=== PATIENT | female | born 1980 | race Caucasian/White ===

== ENCOUNTER 2018-07-20 14:00 | Day surgery (SDC) | payer OTHER ==
[2018-07-19 10:21] VITALS: BMI 40.4
--- NOTE | 2018-07-20 15:27 | HP ---
Admitting History and Physical - Admission Chief Complaint: Abnormal vaginal bleeding History of Present Illness: 38 yo Para 0, with h/o irregular menses, is pre op for D&C hysteroscopy. History Source: Patient Limitations to Obtaining History: No Limitations - Past Medical History ...LMP Comment: ON AND OFF FOR 2 MONTHS ...: No ...Para: 0 - Past Surgical History Past Surgical History: Yes: None - Smoking History Smoking history: Former smoker Have you smoked in the past 12 months: No If you are a former smoker, when did you quit?: 2013 - Alcohol/Substance Use Hx Alcohol Use: No Home Medications - Allergies Allergies/Adverse Reactions: Allergies Allergy/AdvReac Type Severity Reaction Status Date / Time ACRYLLIC Allergy Severe Rash Uncoded 07/20/18 14:37 - Home Medications Home Medications: Ambulatory Orders Aspirin [Ecotrin] 81 mg PO DAILY 07/19/18 Atorvastatin Ca [Lipitor] 80 mg PO DAILY 07/19/18 Carvedilol [Coreg] 6.25 mg PO DAILY 07/19/18 Lisinopril/Hydrochlorothiazide [Lisinopril-Hctz 20-25 mg Tab] 1 each PO DAILY Metformin HCl [Metformin HCl ER] 1,000 mg PO DAILY 07/19/18 Paroxetine HCl 20 mg PO DAILY 07/19/18 Family Disease History - Family Disease History Family History: Unremarkable Review of Systems - Review of Systems Constitutional: reports: No Symptoms Eyes: reports: No Symptoms HENT: reports: No Symptoms Neck: reports: No Symptoms Cardiovascular: reports: No Symptoms Respiratory: reports: No Symptoms Gastrointestinal: reports: No Symptoms Genitourinary: reports: Vaginal Bleeding Breasts: reports: No Symptoms Reported Neurological: reports: No Symptoms Psychiatric: reports: No Symptoms Pain Intensity: 0 Physical Examination Vital Signs: Vital Signs Temperature 98.8 F 07/20/18 14:40 Pulse Rate 90 07/20/18 14:40 Respiratory Rate 18 07/20/18 14:40 Blood Pressure 104/63 07/20/18 14:40 O2 Sat by Pulse Oximetry (%) 90 L 07/20/18 14:42 Constitutional: Yes: Well Nourished Eyes: Yes: Conjunctiva Clear HENT: Yes: Atraumatic Neck: Yes: Supple Cardiovascular: Yes: Regular Rate and Rhythm Respiratory: Yes: Regular Gastrointestinal: Yes: Normal Bowel Sounds Musculoskeletal: Yes: WNL Extremities: Yes: WNL Neurological: Yes: Alert, Oriented ...Motor Strength: WNL Psychiatric: Yes: Alert, Oriented Problem List - Problems (1) Irregular menstrual bleeding Code(s): N92.6 - IRREGULAR MENSTRUATION, UNSPECIFIED (2) H/O metrorrhagia Code(s): Z87.42 - PERSONAL HISTORY OF OTH DISEASES OF THE FEMALE GENITAL TRACT (3) Metrorrhagia Code(s): N92.1 - EXCESSIVE AND FREQUENT MENSTRUATION WITH IRREGULAR CYCLE Assessment/Plan Irregular menses Pre op for D&C hysteroscopy Consent signed Anesthesia to see patient
[2018-07-20] MEDS ORDERED: MIDAZOLAM HCL 2 MG/2 ML SINGLE DOSE VIAL ONE (15:47)
[2018-07-20] MEDS ORDERED: fentaNYL CITRATE 250 MCG/5 ML VIAL ONE (15:48)
[2018-07-20] MEDS ORDERED: SUCCINYLCHOLINE CHLORIDE 200 MG/10 ML VIAL ONE (15:52)
[2018-07-20] MEDS ORDERED: PROPOFOL 20 ML ONE (15:54)
--- NOTE | 2018-07-20 16:13 | OP ---
Operative Note - Note: Operative Date: 07/20/18 Pre-Operative Diagnosis: Menometrorrhagia Operation: D&C Hysteroscopy Findings: Endometrial polyp Post-Operative Diagnosis: Same as Pre-op Surgeon: Renee De La Cruz Anesthesia: General Specimens Removed: Polyp Estimated Blood Loss (mls): 1 Operative Report Dictated: Yes
[2018-07-20] MEDS ORDERED: KETOROLAC TROMETHAMINE 30 MG/1 ML VIAL ONE (16:18)
[2018-07-20] MEDS ORDERED: LIDOCAINE HCL/PF 2% SDV 5ML VIAL ONE (16:18)
[2018-07-20] MEDS ORDERED: ONDANSETRON 4 MG/2 ML VIAL ONE (16:18)
[2018-07-20] MEDS ORDERED: oxyCODONE HCL 5 MG TABLET PO PRN ×2 (17:05)
[2018-07-20] MEDS ORDERED: ONDANSETRON 4 MG/2 ML VIAL IVPUSH PRN (17:05)
[2018-07-20] MEDS ORDERED: LACTATED RINGERS SOLUTION 1,000 ML IV SCH (17:15)
--- NOTE | 2018-07-20 17:22 | OP ---
DATE OF OPERATION: 07/20/2018 PREOPERATIVE DIAGNOSIS: Metrorrhagia, menorrhagia. POSTOPERATIVE DIAGNOSIS: Endometrial polyp. SURGEON: Renee De La Cruz M.D. ANESTHESIA: General. COMPLICATIONS: None. ESTIMATED BLOOD LOSS: 1 mL. PROCEDURE: Patient was taken to the operating room where general anesthesia was administered. Patient was then placed in lithotomy position. She was then prepped and draped in proper sterile fashion. A weighted speculum was placed in the vagina. The anterior lip of the cervix was grasped with a single-toothed tenaculum. Then 5 mm hysteroscope was gently introduced into the uterine cavity. The endometrial cavity was then visualized. Both ostia were visualized; there was a polyp noted in the cavity. Then the polyp forceps was used to remove the polyp and a sharp curettage was then performed. When finished the instruments were removed. The patient was taken out of lithotomy position. She was taken to PACU in stable condition. Pathology, endometrial curettings and endometrial polyp. RENEE DE LA CRUZ M.D. [id number] MTDD
[2018-07-20 18:18] VITALS: TEMP 97.4
[2018-07-20 18:40] VITALS: BP 98/49; PULSE 72
--- NOTE | 2018-07-24 14:28 | PATH ---
Surgical Pathology Report Patient Name: JAVIER AMARAL [facility]. Rec. #: [id number] /Age/Gender: 1980 (Age: 38) / F Account: [id number] Location: [facility] SURGICAL Taken: 07/20/2018 Received: 07/21/2018 Reported: 07/24/2018 Physicians: Renee De La Cruz M.D. Specimen(s) Received ENDOMETRIAL CURETTINGS AND POLYPS Clinical History Menorrhagia Final Diagnosis ENDOMETRIAL CURETTINGS AND POLYPS, DILATION AND CURETTAGE: FRAGMENT OF ENDOMETRIAL POLYP(S) AND SCANTY BENIGN CERVICAL TISSUE. Electronically Signed Lissett Gonzalez M.D. Gross Description Received in formalin labeled "endometrial curettings and polyps," is a 2.1 x 1.6 x 0.2 cm aggregate of napoles, irregular to polypoid soft tissue fragments. The formalin is filtered and the specimen is entirely submitted in one cassette. /07/21/201807/21/2018
== END 2018-07-20 18:37 | disposition home or self-care (01) ==
LOC: JASU-SURG 14:00
PROVIDERS: ATTEND Obstetrics & Gynecology
PROC: 0UB97ZX Excision of Uterus, Via Natural or Artificial Opening, Diagnostic (ICD-10-PCS; principal; 2018-07-20 15:30)
PROC: 0UJD8ZZ Inspection of Uterus and Cervix, Via Natural or Artificial Opening Endoscopic (ICD-10-PCS; 2018-07-20 15:30)
DX: N92.1 Excessive and frequent menstruation with irregular cycle (principal); N84.0 Polyp of corpus uteri; I10 Essential (primary) hypertension; E11.9 Type 2 diabetes mellitus without complications; Z76.89 Persons encountering health services in other specified circumstances
CPT/HCPCS: 82962; 84703; 88305-TC; 94760

== ENCOUNTER 2020-01-20 22:47 | Emergency (ER) | payer OTHER ==
[2020-01-20 23:09] VITALS: BP 112/69; PULSE 97; BMI 37.0
--- NOTE | 2020-01-20 23:09 | PDOC ---
History of Present Illness - General Chief Complaint: Chest Pain Stated Complaint: CHEST PAIN Time Seen by Provider: 01/20/20 23:09 History Source: Patient Exam Limitations: No Limitations - History of Present Illness Initial Comments: 01/20/20 23:09 Kirstin Rodriguez is a 40F anxiety, NIDDM, HTN, HLD, NM (s/p stent 2013) presenting with chest pain. 6 years ago patient had vomiting and diarrhea with palpitations intermittently throughout the day went to ED and had 95% LAD stent stopped smoking today is patient's birthday, ate cake and democrat food after had one episode vomiting and diarrhea with palpitations no chest pain, no SOB, no DEWITT, no vision changes, no abd pain, no urinary sx came to ED for eval given prior NM symptoms history patient believes it is just anxiety LMP a few months ago, highly irregular menses asymptomatic at this time denies alcohol/drug/tobacco use allergy to acrylic fingernail extensions sees Raquel for cards and has 6 month visits, last normal Cards: Raquel Meds: metformin, Paxil Past History - Medical History Allergies/Adverse Reactions: Allergies Allergy/AdvReac Type Severity Reaction Status Date / Time No Known Drug Allergies Allergy Unknown Verified 08/11/19 16:03 ACRYLLIC Allergy Severe Rash Uncoded 08/11/19 16:03 Home Medications: Ambulatory Orders Aspirin [Ecotrin] 81 mg PO DAILY 07/19/18 Atorvastatin Ca [Lipitor] 80 mg PO DAILY 07/19/18 Carvedilol [Coreg] 6.25 mg PO DAILY 07/19/18 Lisinopril/Hydrochlorothiazide [Lisinopril-Hctz 20-25 mg Tab] 1 each PO DAILY 07/19/18 Paroxetine HCl 20 mg PO DAILY 07/19/18 metFORMIN HCL [Metformin HCl ER] 1,000 mg PO DAILY 07/19/18 Anemia: No Asthma: No Cancer: No Cardiac Disorders: Yes (HEART ATTACK; STENT 2013) CVA: No COPD: No CHF: No Dementia: No Diabetes: Yes GI Disorders: No Disorders: No HTN: Yes Hypercholesterolemia: Yes Liver Disease: No Seizures: No Thyroid Disease: No - Surgical History Abdominal Surgery: No Appendectomy: No Cardiac Surgery: Yes (STENT) Cholecystectomy: No Lung Surgery: No Neurologic Surgery: No Orthopedic Surgery: No - Reproductive History Is Patient Now?: No - Psycho-Social/Smoking History Smoking History: Unknown if ever smoked Have you smoked in the past 12 months: No If you are a former smoker, when did you quit?: 2014 - Substance Abuse Hx (Audit-C & DAST Scrn) How often the patient has a drink containing alcohol: Never Score: In Men: 4 or > Positive; In Women: 3 or > Positive: 0 Screen Result (Pos requires Nsg. Audit-10AR): Negative In the last yr the pt used illegal drug/Rx for NonMed reason: No Score: Yes response is considered Positive: 0 Screen Result (Positive result requires Nsg. DAST-10): Negative Review of Systems - Review of Systems Able to Perform ROS?: Yes Constitutional: No: Symptoms Reported HEENTM: No: Symptoms Reported Respiratory: No: Symptoms reported Cardiac (ROS): Yes: Palpitations. No: Chest Pain ABD/GI: Yes: Constipated, Diarrhea, Nausea, Vomiting. No: Poor Appetite, Poor Fluid Intake : No: Symptoms Reported Musculoskeletal: No: Symptoms Reported Integumentary: No: Symptoms Reported Neurological: No: Symptoms reported Endocrine: No: Symptoms Reported Hematologic/Lymphatic: No: Symptoms Reported All Other Systems: Reviewed and Negative *Physical Exam - Vital Signs Last Vital Signs Temp Pulse Resp BP Pulse Ox 97 H 12 112/69 99 01/20/20 23:00 01/20/20 23:00 01/20/20 23:00 01/20/20 23:00 - Physical Exam General Appearance: Yes: Nourished, Appropriately Dressed, Obese. No: Apparent Distress HEENT: positive: EOMI, MARIBELL, Normal Voice, Symmetrical, Pharynx Normal. negati ve: Scleral Icterus (R), Scleral Icterus (L), Pharyngeal Erythema, Tonsillar Exudate, Tonsillar Erythema Neck: positive: Trachea midline, Supple. negative: Tender, Rigid, Decreased range of motion, Stridor, Lymphadenopathy (R), Lymphadenopathy (L) Respiratory/Chest: positive: Lungs Clear, Normal Breath Sounds. negative: Chest Tender, Respiratory Distress, Accessory Muscle Use, Crackles, Rales, Rhonchi, Stridor, Wheezing Cardiovascular: positive: Regular Rhythm, Regular Rate. negative: Murmur Gastrointestinal/Abdominal: positive: Normal Bowel Sounds, Flat, Soft. negative: Tender, Organomegaly, Pulsatile Mass, Guarding, Rebound Musculoskeletal: positive: Normal Inspection. negative: CVA Tenderness, CVA Tenderness (R), CVA Tenderness (L), Decreased Range of Motion, Vertebral Tenderness Extremity: positive: Normal Capillary Refill, Normal Inspection, Normal Range of Motion, Pelvis Stable. negative: Tender, Coldness, Cyanosis, Pedal Edema, Swelling, Calf Tenderness Integumentary: positive: Normal Color, Dry, Warm. negative: Diaphoresis Neurologic: positive: Fully Oriented, Alert, Normal Mood/Affect, Normal Response ED Treatment Course - LABORATORY CBC & Chemistry Diagram: 01/20/20 23:40 01/20/20 23:40 Medical Decision Making - Medical Decision Making 01/20/20 23:09 Patient has history of LAD occlusion and NM, HTN, HLD, NIDDM, here with palpitations and symptoms consistent with prior including N/V. Asymptomatic at this time, VSS, exam unremarkable. ECG SR with sinus arrthythmia HR 88 QTc 450 no CHELO/D or TWI. Eval with CMP/CBC/CP/ECG/CXR/TSH. Patient high risk for cardiac disease, merits tele/obs admit for further eval. 01/21/20 03:22 ECG NSR with PVCs HR 88 QTc 450 no CHELO/D or TWI. CXR not taken yet. Labs notable for: - WBC 12.1 - CMP WNL - CP WNL - lipase 512, consistent with acute pancreatitis Discussed results with patient, recommend tele/obs admission. Patient refuses to stay citing she has a tattoo appointment in the morning. Discussed high risk of cardiac pathology including CVA/NM/, as as well as likely pancreatitis meriting further evaluation for causes with GI. Patient still wishes to leave AMA. Has capacity to make this decision. Patient signed AMA paperwork. Discussed importance of MD follow-up and to return if any symptoms manifest, patient understands and has left ED. Discharge - Discharge Information Problems reviewed: Yes Clinical Impression/Diagnosis: Palpitations Pancreatitis Qualifiers: Chronicity: acute Pancreatitis type: unspecified pancreatitis type Acute pancreatitis complication: unspecified Qualified Code(s): K85.90 - Acute pancreatitis without necrosis or infection, unspecified Condition: Stable Disposition: AGAINST MEDICAL ADVICE - Follow up/Referral Referrals: Jason Park MD [Primary Care Provider] - - Patient Discharge Instructions Patient Printed Discharge Instructions: DI for Pancreatitis, DI for Atypical Chest Pain Additional Instructions: Today you were evaluated for nausea and vomiting. Your labs do not show any heart attack now, but we recommend you stay for heart monitoring as you are at high risk for heart attack again. You also have pancreatitis, and we recommend you stay for this as well. You refuse to stay in the hospital and would like to leave despite risk of worsening pancreatitis and heart attack. At home, avoid fatty foods and stay hydrated. Please follow-up with your regular doctor for further care. - Post Discharge Activity Work/Back to School Note: My Personal Safety Plan
[2020-01-21 00:20] LABS: BASO % 0.5 % (0-2.0); EOS % 1.4 % (0-4.5); HEMATOCRIT 28.9 % (32.4-45.2); HEMOGLOBIN 9.2 GM/dL (10.7-15.3); LYMPH % 17.6 % (8-40); MEAN CELL VOLUME 78.1 fl (80-96); MEAN PLT VOLUME 7.6 fl (7.5-11.1); MONO % 4.6 % (3.8-10.2); NEUT % 75.9 % (42.8-82.8); PLATELET COUNT 458 K/MM3 (134-434); RBC 3.69 M/mm3 (3.60-5.2); WHITE BLOOD COUNT 12.1 K/mm3 (4.0-10.0)
[2020-01-21 00:44] LABS: BILIRUBIN,TOTAL 0.1 mg/dL (0.2-1); BLOOD UREA NITROGEN 17.4 mg/dL (7-18); CALCIUM 8.9 mg/dL (8.5-10.1); CO2 27 mmol/L (21-32); CREATININE 1.1 mg/dL (0.55-1.3); GLUCOSE,RANDOM 242 mg/dL (74-106); POTASSIUM 3.9 mmol/L (3.5-5.1); SGPT/ALT 23 U/L (13-61); SODIUM 135 mmol/L (136-145); TOT PROT 7.5 g/dl (6.4-8.2)
[2020-01-21 00:45] LABS: ALBUMIN 3.4 g/dl (3.4-5.0); ALK PHOS 94 U/L (45-117); ANION GAP 7 MMOL/L (8-16); CHLORIDE 101 mmol/L (98-107); LIPASE 512 U/L (73-393)
[2020-01-21 00:50] LABS: SGOT/AST < 3 U/L (15-37)
--- NOTE | 2020-01-21 10:31 | EKG ---
Test Reason : Blood Pressure : / mmHG Vent. Rate : 088 BPM Atrial Rate : 088 BPM P-R Int : 148 ms QRS Dur : 082 ms QT Int : 372 ms P-R-T Axes : 047 011 021 degrees QTc Int : 450 ms SINUS RHYTHM WITH PREMATURE SUPRAVENTRICULAR COMPLEXES OTHERWISE NORMAL ECG WHEN COMPARED WITH ECG OF 11-AUG-2019 22:26, PREMATURE SUPRAVENTRICULAR COMPLEXES ARE NOW PRESENT Confirmed by BABAR MURRAY MD ([id number]) on 01/21/2020 10:31:28 AM Referred By: Confirmed By:BABAR MURRAY MD
--- NOTE | 2020-01-23 09:10 | EKG ---
Test Reason : Blood Pressure : / mmHG Vent. Rate : 088 BPM Atrial Rate : 088 BPM P-R Int : 148 ms QRS Dur : 082 ms QT Int : 372 ms P-R-T Axes : 047 011 021 degrees QTc Int : 450 ms SINUS RHYTHM WITH PREMATURE SUPRAVENTRICULAR COMPLEXES OTHERWISE NORMAL ECG WHEN COMPARED WITH ECG OF 11-AUG-2019 22:26, PREMATURE SUPRAVENTRICULAR COMPLEXES ARE NOW PRESENT Confirmed by MD V[place], DRE ([id number]) on 01/23/2020 9:10:15 AM Referred By: Confirmed By:DRE COLEMAN MD
--- NOTE | 2020-01-29 18:30 | PDOC ---
Documentation entered by Rachel Bhandari SCRIBE, acting as scribe for Ángela Houser MD. Ángela Houser MD: This documentation has been prepared by the Trisha gerber Sydney, SCRIBE, under my direction and personally reviewed by me in its entirety. I confirm that the documentation accurately reflects all work, treatment, procedures, and medical decision making performed by me. Attending Attestation - Resident Resident Name: Rob Larsen - ED Attending Attestation I have performed the following: I have examined & evaluated the patient, The case was reviewed & discussed with the resident, I agree w/resident's findings & plan, Exceptions are as noted - HPI HPI: 01/20/20 23:29 Patient is a 40 year old female with a significant past medical history of anxiety, former smoker (quit 5 years ago), DM, HTN HLD, MA (s/p stent 2013) who presents to the ED with one day of vomiting and diarrhea. As per patient, she was celebrating her birthday this afternoon when she suddenly began vomiting and having diarrhea simultaneously. Patient also endorses associated heart palpitations. She reported to the ED for further evaluation of her symptoms secondary to have a very similar episode when she had a MA in 2013. Denies headache, fever, chills, abdominal pain, or urinary changes. Allergies: NKDA PCP: Dr. Park - Physicial Exam PE: 01/21/20 01:18 wnwd 40 yo female p/w nausea,vomiting ,diarrhea PMH CAD,MA,HTN,NIDDM 01/29/20 18:28 head ncat neck supple lungs cta b/l cvs [id number] abd nontender skin warm and dry extremities nontender neuro axox3 - Medical Decision Making 01/20/20 23:28 ekg nsr @ 88 bpm Discharge - Discharge Information Problems reviewed: Yes Clinical Impression/Diagnosis: Palpitations Pancreatitis Qualifiers: Chronicity: acute Pancreatitis type: unspecified pancreatitis type Acute pancreatitis complication: unspecified Qualified Code(s): K85.90 - Acute pancreatitis without necrosis or infection, unspecified Condition: Stable Disposition: AGAINST MEDICAL ADVICE - Follow up/Referral Referrals: Jason Park MD [Primary Care Provider] - - Patient Discharge Instructions Patient Printed Discharge Instructions: DI for Pancreatitis, DI for Atypical Chest Pain Additional Instructions: Today you were evaluated for nausea and vomiting. Your labs do not show any heart attack now, but we recommend you stay for heart monitoring as you are at high risk for heart attack again. You also have pancreatitis, and we recommend you stay for this as well. You refuse to stay in the hospital and would like to leave despite risk of worsening pancreatitis and heart attack. At home, avoid fatty foods and stay hydrated. Please follow-up with your regular doctor for further care. - Post Discharge Activity Work/Back to School Note: My Personal Safety Plan
== END 2020-01-21 01:35 | disposition left against medical advice (07) ==
LOC: JER 22:47
DX: R00.2 Palpitations (principal); K85.90 Acute pancreatitis without necrosis or infection, unspecified
CPT/HCPCS: 36415; 80053; 82550; 83690; 84443; 84484; 85025; 93005; 93010; 99285-25

== ENCOUNTER 2023-10-03 18:36 | Emergency (ER) | payer OTHER ==
[2023-10-03 18:55] VITALS: BP 110/72; PULSE 92; RESP 18; TEMP 98; BMI 37.0
[2023-10-03 20:21] LABS: EPI CELLS >36 /uL (0-25.1); HYALINE CASTS 1 /uL (0-3.1); PH,URINE 5.5 (5.0-8.0); URINE APPEARANCE TURBID; URINE BACTERIA 318 /uL (0-1359); URINE BILIRUBIN NEGATIVE (NEGATIVE); URINE COLOR ORANGE; URINE GLUCOSE (UA) NEGATIVE (NEGATIVE); URINE KETONE TRACE (NEGATIVE); URINE LEUK ESTERASE 1+ (NEGATIVE); URINE NITRITE NEGATIVE (NEGATIVE); URINE PROTEIN 2+ (NEGATIVE); URINE RBC 4276 /uL (0-23.9); URINE WBC 97 /uL (0-25.8)
[2023-10-03] MEDS: ACETAMINOPHEN 1000 MG/100 ML BAG IVPB ONE (21:10)
[2023-10-03] MEDS: SODIUM CHLORIDE 0.9% 500 ML INFUS.BAG IV ONE (21:10)
[2023-10-03 21:12] LABS: BASO % 0.6 % (0-2.0); EOS % 1.4 % (0-4.5); HEMATOCRIT 38.9 % (32.4-45.2); HEMOGLOBIN 13.3 GM/dL (10.7-15.3); LYMPH % 29.4 % (8-40); MCH 30.8 pg (25.7-33.7); MCHC 34.1 g/dl (32.0-36.0); MEAN CELL VOLUME 90.4 fl (80-96); MEAN PLT VOLUME 7.3 fl (7.5-11.1); MONO % 5.6 % (3.8-10.2); PLATELET COUNT 399 10^3/uL (134-434); RDW 13.7 % (11.6-15.6); WHITE BLOOD COUNT 13.3 K/mm3 (4.0-10.0)
[2023-10-03 21:38] LABS: POTASSIUM 3.9 mmol/L (3.5-5.1)
[2023-10-03 21:41] LABS: CALCIUM 9.8 mg/dL (8.5-10.1)
[2023-10-03 21:42] LABS: ALBUMIN 3.8 g/dl (3.4-5.0); BLOOD UREA NITROGEN 13.5 mg/dL (7-18)
[2023-10-03 21:45] LABS: CREATININE 0.8 mg/dL (0.55-1.3)
[2023-10-03 21:46] LABS: TOT PROT 7.8 g/dl (6.4-8.2)
[2023-10-03 21:47] LABS: BILIRUBIN,TOTAL 0.4 mg/dL (0.2-1)
[2023-10-03] MEDS ORDERED: FLUCONAZOLE 150 MG TABLET PO ONE (22:40)
[2023-10-03] MEDS: FLUCONAZOLE 150 MG TABLET PO ONE (22:43)
[2023-10-03 23:05] LABS: EPI CELLS 15 /uL (0-25.1); HYALINE CASTS 1 /uL (0-3.1); URINE APPEARANCE TURBID; URINE BACTERIA 24 /uL (0-1359); URINE BILIRUBIN NEGATIVE (NEGATIVE); URINE COLOR ORANGE; URINE GLUCOSE (UA) NEGATIVE (NEGATIVE); URINE KETONE NEGATIVE (NEGATIVE); URINE LEUK ESTERASE 1+ (NEGATIVE); URINE NITRITE NEGATIVE (NEGATIVE); URINE PROTEIN 2+ (NEGATIVE); URINE WBC 136 /uL (0-25.8)
[2023-10-03 23:31] LABS: URINE CRYSTALS NONE SEEN /hpf; URINE RBC 11860.4 /uL (0-23.9)
== END 2023-10-03 23:34 | disposition home or self-care (01) ==
LOC: JER 18:36
DX: N39.0 Urinary tract infection, site not specified (principal); R10.30 Lower abdominal pain, unspecified; R31.9 Hematuria, unspecified
CPT/HCPCS: 36415; 74176-TC; 80053; 81003; 82550; 84703; 85025; 87077; 87086; 99284-25

== ENCOUNTER 2024-09-19 05:56 | Inpatient (IN) | payer OTHER ==
[2024-09-19] MEDS ORDERED: KETOROLAC TROMETHAMINE 15 MG/ML VIAL ONE (06:36)
[2024-09-19] MEDS: SODIUM CHLORIDE 0.9% 500 ML INFUS.BAG IV ONE (06:49)
[2024-09-19] MEDS: KETOROLAC TROMETHAMINE 15 MG/ML VIAL IVPUSH ONE (06:49)
[2024-09-19 07:07] LABS: ABSOLUTE IMMATURE GRANULOCYTES 0.03 x10^3/uL (0.0-0.031); BASOPHILS # 0.08 x10^3/uL (0.01-0.08); EOSINOPHIL % 2.3 % (0.7-5.8); EOSINOPHILS # 0.25 x10^3/uL (0.04-0.36); HEMATOCRIT 37.9 % (34.1-44.9); HEMOGLOBIN 12.5 g/dL (11.2-15.7); MEAN CELL VOLUME 92.7 fl (79.4-94.8); MEAN PLT VOLUME 9.6 fl (9.4-12.3); MONOCYTE # 0.74 x10^3/uL (0.24-0.86); MONOCYTE % 6.9 % (4.7-12.5); PLATELET COUNT 320 x10^3/uL (182-369); RDW 12.6 % (12.2-17.1)
[2024-09-19 07:36] LABS: POTASSIUM 4.1 mmol/L (3.5-5.1)
[2024-09-19 07:38] LABS: CALCIUM 9.7 mg/dL (8.5-10.1)
[2024-09-19 07:39] LABS: ALBUMIN 3.4 g/dl (3.4-5.0); BLOOD UREA NITROGEN 16.2 mg/dL (7-18)
[2024-09-19 07:42] LABS: CREATININE 0.7 mg/dL (0.55-1.3)
[2024-09-19 07:43] LABS: BILIRUBIN,TOTAL 0.2 mg/dL (0.2-1)
[2024-09-19 07:44] LABS: TOT PROT 6.8 g/dl (6.4-8.2)
[2024-09-19 08:39] LABS: EPI CELLS 34 /uL (0-25.1); HCG,QUALITATIVE URINE Negative; HYALINE CASTS 2 /uL (0-3.1); PH,URINE 5.5 (5.0-8.0); URINE APPEARANCE TURBID; URINE BACTERIA 857 /uL (0-1359); URINE BILIRUBIN NEGATIVE (NEGATIVE); URINE COLOR ORANGE; URINE GLUCOSE (UA) NEGATIVE (NEGATIVE); URINE KETONE TRACE (NEGATIVE); URINE LEUK ESTERASE 1+ (NEGATIVE); URINE NITRITE NEGATIVE (NEGATIVE); URINE PROTEIN 2+ (NEGATIVE); URINE RBC 12807 /uL (0-23.9); URINE UROBILINOGEN 0.2 mg/dL (0.2-1.0); URINE WBC 67 /uL (0-25.8)
[2024-09-19] MEDS ORDERED: CEFTRIAXONE 1 G/50 ML PREMIX 50 ML IVPB ONE (10:31)
[2024-09-19] MEDS ORDERED: ACETAMINOPHEN 500 MG TABLET (FP) PO PRN (12:01)
[2024-09-19] MEDS ORDERED: KETOROLAC TROMETHAMINE 15 MG/ML VIAL IVPUSH PRN (12:01)
[2024-09-19] MEDS ORDERED: ASPIRIN COATED 81 MG TABLET.EC ONE (14:28)
[2024-09-19] MEDS: ASPIRIN COATED 81 MG TABLET.EC PO SCH (14:36)
[2024-09-19 15:53] VITALS: BMI 36.0
[2024-09-19] MEDS: INSULIN ASPART SLIDING SCALE (NOVOLOG) 1 VIAL SQ SCH (16:15)
[2024-09-19] MEDS: SODIUM CHLORIDE 1,000 ML IV SCH (16:16)
[2024-09-19] MEDS: ATORVASTATIN CA 80 MG TABLET (FP) PO SCH (21:14)
[2024-09-19] MEDS: PARoxetine HCL 20 MG TABLET PO SCH (21:14)
[2024-09-19] MEDS: CARVEDILOL 6.25 MG TABLET (FP) PO SCH (21:14)
[2024-09-20 09:35] LABS: ABSOLUTE IMMATURE GRANULOCYTES 0.03 x10^3/uL (0.0-0.031); BASOPHILS # 0.05 x10^3/uL (0.01-0.08); EOSINOPHILS # 0.17 x10^3/uL (0.04-0.36); HEMATOCRIT 34.5 % (34.1-44.9); HEMOGLOBIN 11.4 g/dL (11.2-15.7); MEAN CELL VOLUME 92.7 fl (79.4-94.8); MEAN PLT VOLUME 9.5 fl (9.4-12.3); MONOCYTE # 0.49 x10^3/uL (0.24-0.86); MONOCYTE % 5.9 % (4.7-12.5); PLATELET COUNT 283 x10^3/uL (182-369); RDW 12.6 % (12.2-17.1)
[2024-09-20] MEDS: CEFTRIAXONE 1 G/50 ML PREMIX 50 ML IVPB SCH (10:25)
[2024-09-20 10:47] LABS: POTASSIUM 4.1 mmol/L (3.5-5.1)
[2024-09-20 11:06] LABS: BLOOD UREA NITROGEN 8.5 mg/dL (7-18)
[2024-09-20 11:07] LABS: CREATININE 0.6 mg/dL (0.55-1.3)
[2024-09-20 11:08] LABS: CALCIUM 8.6 mg/dL (8.5-10.1)
[2024-09-20] MEDS ORDERED: PROPOFOL 20 ML ONE (14:05)
[2024-09-20] MEDS: ceFAZolin SODIUM 1 GM VIAL IVPB ONE (14:10)
[2024-09-20] MEDS: LACTATED RINGERS SOLUTION 1,000 ML IV SCH ×2 (14:36→17:07)
[2024-09-20] MEDS ORDERED: KETOROLAC TROMETHAMINE 15 MG/ML VIAL IVPUSH PRN (15:26)
[2024-09-20] MEDS ORDERED: ACETAMINOPHEN 500 MG TABLET (FP) PO PRN (15:26)
[2024-09-20] MEDS: ACETAMINOPHEN 1000 MG/100 ML BAG IVPB ONE (16:12)
[2024-09-20] MEDS ORDERED: KETOROLAC TROMETHAMINE 30 MG/1 ML VIAL IVPUSH ONE (18:09)
[2024-09-20] MEDS ORDERED: morphine CARPU-JECT 2 MG/1 ML DISP.SYRIN IM PRN ×2 (18:13→21:00)
[2024-09-20] MEDS: INSULIN ASPART SLIDING SCALE (NOVOLOG) 1 VIAL SQ SCH (18:30)
[2024-09-20] MEDS: HYDROmorphone HCL CARPU-JECT 2 MG/1 ML DISP.SYRIN IVPUSH ONE (18:43)
[2024-09-20] MEDS: KETOROLAC TROMETHAMINE 30 MG/1 ML VIAL IVPUSH ONE (18:49)
[2024-09-20] MEDS: ATORVASTATIN CA 80 MG TABLET (FP) PO SCH (21:15)
[2024-09-20] MEDS: PARoxetine HCL 20 MG TABLET PO SCH (21:15)
[2024-09-20] MEDS: CARVEDILOL 6.25 MG TABLET (FP) PO SCH (21:15)
[2024-09-21] MEDS: ACETAMINOPHEN 1000 MG/100 ML BAG IVPB SCH (00:09)
[2024-09-21] MEDS: KETOROLAC TROMETHAMINE 15 MG/ML VIAL IVPUSH PRN (03:19)
[2024-09-21 05:45] VITALS: RESP 18
[2024-09-21] MEDS: CEFTRIAXONE 1 G/50 ML PREMIX 50 ML IVPB SCH (10:21)
[2024-09-21 10:52] VITALS: BP 121/81; PULSE 77; TEMP 98.2
== END 2024-09-21 12:15 | disposition home or self-care (01) | DRG 661 ==
LOC: JER 05:56 → JERBED 12:34 → J6S 15:17
PROVIDERS: ADMIT Internal Medicine; ATTEND Internal Medicine
PROC: 0T738DZ Dilation of Right Kidney Pelvis with Intraluminal Device, Via Natural or Artificial Opening Endoscopic (ICD-10-PCS; principal; 2024-09-20 14:00)
PROC: BT1DZZZ Fluoroscopy of Right Kidney, Ureter and Bladder (ICD-10-PCS; 2024-09-20 14:00)
DX: N13.2 Hydronephrosis with renal and ureteral calculous obstruction (principal); I10 Essential (primary) hypertension; E78.5 Hyperlipidemia, unspecified; I25.2 Old myocardial infarction; E11.9 Type 2 diabetes mellitus without complications; I25.10 Atherosclerotic heart disease of native coronary artery without angina pectoris
CPT/HCPCS: 36415; 74176-TC; 76000-TC-FY; 76775-TC; 80048; 80053; 81003; 82962; 84703; 85025; 87086; 94760; 99285-25

== ENCOUNTER 2024-09-23 09:09 | Observation (INO) | payer OTHER ==
[2024-09-23 09:17] VITALS: BMI 37.1
[2024-09-23] MEDS ORDERED: ACETAMINOPHEN INJECTION 100 ML ONE (10:18)
[2024-09-23] MEDS ORDERED: ONDANSETRON 4 MG/2 ML VIAL ONE (10:18)
[2024-09-23] MEDS: ONDANSETRON 4 MG/2 ML VIAL IVPUSH ONE (10:26)
[2024-09-23] MEDS: ACETAMINOPHEN 1000 MG/100 ML BAG IVPB ONE (10:26)
[2024-09-23 10:38] LABS: ABSOLUTE IMMATURE GRANULOCYTES 0.04 x10^3/uL (0.0-0.031); BASOPHILS # 0.04 x10^3/uL (0.01-0.08); EOSINOPHILS # 0.12 x10^3/uL (0.04-0.36); HEMATOCRIT 34.9 % (34.1-44.9); HEMOGLOBIN 11.8 g/dL (11.2-15.7); MCHC 33.8 g/dl (32.2-35.5); MEAN CELL VOLUME 90.9 fl (79.4-94.8); MEAN PLT VOLUME 9.5 fl (9.4-12.3); MONOCYTE # 0.79 x10^3/uL (0.24-0.86); MONOCYTE % 6.6 % (4.7-12.5); PLATELET COUNT 296 x10^3/uL (182-369); RDW 12.6 % (12.2-17.1)
[2024-09-23 10:42] LABS: EPI CELLS >36 /uL (0-25.1); HYALINE CASTS 4 /uL (0-3.1); URINE APPEARANCE TURBID; URINE BACTERIA 99 /uL (0-1359); URINE BILIRUBIN NEGATIVE (NEGATIVE); URINE COLOR RED; URINE GLUCOSE (UA) NEGATIVE (NEGATIVE); URINE KETONE NEGATIVE (NEGATIVE); URINE LEUK ESTERASE 2+ (NEGATIVE); URINE NITRITE NEGATIVE (NEGATIVE); URINE PROTEIN 2+ (NEGATIVE); URINE RBC 8022 /uL (0-23.9); URINE WBC 431 /uL (0-25.8)
[2024-09-23 10:53] LABS: POTASSIUM 3.9 mmol/L (3.5-5.1)
[2024-09-23 10:56] LABS: CALCIUM 9.1 mg/dL (8.5-10.1)
[2024-09-23 10:57] LABS: ALBUMIN 3.4 g/dl (3.4-5.0); BLOOD UREA NITROGEN 12.8 mg/dL (7-18); MAGNESIUM 1.6 mg/dL (1.8-2.4)
[2024-09-23 11:00] LABS: CREATININE 1.3 mg/dL (0.55-1.3)
[2024-09-23 11:01] LABS: BILIRUBIN,TOTAL 0.7 mg/dL (0.2-1); TOT PROT 6.5 g/dl (6.4-8.2)
[2024-09-23] MEDS ORDERED: KETOROLAC TROMETHAMINE 15 MG/ML VIAL ONE (11:26)
[2024-09-23] MEDS: KETOROLAC TROMETHAMINE 15 MG/ML VIAL IVPUSH ONE (11:27)
[2024-09-23] MEDS ORDERED: CEFTRIAXONE 1 G/50 ML PREMIX 50 ML IVPB ONE (13:07)
[2024-09-23] MEDS ORDERED: ACETAMINOPHEN 500 MG TABLET (FP) PO PRN (16:55)
[2024-09-23] MEDS: LACTATED RINGERS SOLUTION 1,000 ML/1,000 ML INFUS.BAG IV SCH (17:02)
[2024-09-23] MEDS: ATORVASTATIN CA 80 MG TABLET (FP) PO SCH (21:17)
[2024-09-23] MEDS: HEPARIN NA (PORCINE) 5,000 UNITS/ML 1ML VIAL SQ SCH (21:17)
[2024-09-23] MEDS: KETOROLAC TROMETHAMINE 15 MG/ML VIAL IVPUSH PRN (21:18)
[2024-09-23] MEDS: PARoxetine HCL 20 MG TABLET PO SCH (21:18)
[2024-09-23] MEDS: CARVEDILOL 6.25 MG TABLET (FP) PO SCH (21:18)
[2024-09-24] MEDS: INSULIN ASPART SLIDING SCALE (NOVOLOG) 1 VIAL SQ SCH (06:08)
[2024-09-24 08:15] LABS: ABSOLUTE IMMATURE GRANULOCYTES 0.04 x10^3/uL (0.0-0.031); BASOPHILS # 0.04 x10^3/uL (0.01-0.08); EOSINOPHIL % 2.6 % (0.7-5.8); EOSINOPHILS # 0.24 x10^3/uL (0.04-0.36); HEMATOCRIT 33.1 % (34.1-44.9); HEMOGLOBIN 11.1 g/dL (11.2-15.7); MCHC 33.5 g/dl (32.2-35.5); MEAN CELL VOLUME 91.2 fl (79.4-94.8); MONOCYTE # 0.69 x10^3/uL (0.24-0.86); MONOCYTE % 7.5 % (4.7-12.5); PLATELET COUNT 281 x10^3/uL (182-369); RDW 12.6 % (12.2-17.1)
[2024-09-24 08:33] LABS: POTASSIUM 3.8 mmol/L (3.5-5.1)
[2024-09-24 08:41] LABS: CALCIUM 9.2 mg/dL (8.5-10.1)
[2024-09-24 08:42] LABS: BLOOD UREA NITROGEN 14.6 mg/dL (7-18)
[2024-09-24] MEDS: CEFTRIAXONE 1 G/50 ML PREMIX 50 ML IVPB SCH (10:05)
[2024-09-24] MEDS: ASPIRIN COATED 81 MG TABLET.EC PO SCH (10:06)
[2024-09-24] MEDS ORDERED: POLYETHYLENE GLYCOL (HEALTHYLAX) 3350 17 GM PACKET PO PRN (11:13)
[2024-09-25 11:05] VITALS: RESP 20
[2024-09-25 14:43] VITALS: BP 140/80; PULSE 75; TEMP 98.4
== END 2024-09-25 14:48 | disposition home or self-care (01) ==
LOC: JER 09:09 → JERBED 16:32 → J8W 18:17
PROVIDERS: ADMIT Internal Medicine; ATTEND Nurse Practitioner Family
PROC: 3E033NZ Introduction of Analgesics, Hypnotics, Sedatives into Peripheral Vein, Percutaneous Approach (ICD-10-PCS; principal; 2024-09-23)
PROC: 3E03329 Introduction of Other Anti-infective into Peripheral Vein, Percutaneous Approach (ICD-10-PCS; 2024-09-23)
PROC: 3E033GC Introduction of Other Therapeutic Substance into Peripheral Vein, Percutaneous Approach (ICD-10-PCS; 2024-09-23)
PROC: 3E013VG Introduction of Insulin into Subcutaneous Tissue, Percutaneous Approach (ICD-10-PCS; 2024-09-23)
PROC: 3E0333Z Introduction of Anti-inflammatory into Peripheral Vein, Percutaneous Approach (ICD-10-PCS; 2024-09-23)
DX: N12 Tubulo-interstitial nephritis, not specified as acute or chronic (principal); N23 Unspecified renal colic; N20.0 Calculus of kidney; E78.5 Hyperlipidemia, unspecified; I10 Essential (primary) hypertension; I25.2 Old myocardial infarction; Z95.5 Presence of coronary angioplasty implant and graft; E66.9 Obesity, unspecified; E11.9 Type 2 diabetes mellitus without complications; Z87.440 Personal history of urinary (tract) infections; Z88.8 Allergy status to other drugs, medicaments and biological substances; Z87.442 Personal history of urinary calculi; Z87.891 Personal history of nicotine dependence
CPT/HCPCS: 36415; 74177-TC; 80048; 80053; 81003; 82962; 83735; 84703; 85025; 87086; 93005; 93010; 99285-25; G0378; J0131; Q9967